=== PATIENT | female | born 1980 | race Asian ===

== ENCOUNTER 2021-06-18 09:35 | Outpatient (CLI) | payer OTHER | END 2021-06-18 22:36 | disposition home or self-care (01) | LOC: RAD 09:35 | PROVIDERS: ATTEND Internal Medicine | DX: M54.41 Lumbago with sciatica, right side (principal) ==

== ENCOUNTER 2022-04-14 15:07 | Outpatient (CLI) | payer OTHER | END 2022-04-14 19:10 | disposition home or self-care (01) | LOC: LABW 15:07 | PROVIDERS: ATTEND Internal Medicine | DX: M79.662 Pain in left lower leg (principal) | CPT/HCPCS: 85379 ==

== ENCOUNTER 2022-06-16 21:04 | Emergency (ER) | payer OTHER ==
[~2022-06-16] VITALS: Ht 149.9 cm; Wt 80.3 kg
[2022-06-16 21:09] VITALS: BP 159/93; TEMP 97.3
== END 2022-06-16 22:12 | disposition home or self-care (01) ==
LOC: ED 21:04
DX: J10.1 Influenza due to other identified influenza virus with other respiratory manifestations (principal)
CPT/HCPCS: 87502; 99283